=== PATIENT | female | born 1955 | race Two or more races ===

== ENCOUNTER 2019-12-01 08:31 | Emergency (ER) | payer MEDICAID, OTHER ==
[~2019-12-01] VITALS: Ht 162.6 cm; Wt 103.4 kg
[2019-12-01] MEDS ORDERED: ASPirin 81 mg TAB PO ONE (09:00)
[2019-12-01] MEDS ORDERED: HYDROcodone-ACET 10/325MG TAB PO ONE (09:15)
[2019-12-01 09:17] LABS: Basophils # (auto) 0.1 uL; Eosinophils # (auto) 0.3 uL; Eosinophils % (auto) 3.6 % (0.0-7.0); Hematocrit 45.9 % (36.0-46.0); Hemoglobin 15.7 g/dL (12.2-16.2); Lymphocytes # (auto) 2.8 uL; Lymphocytes % (auto) 36.3 % (10.0-50.0); Mean Corpuscular Hemoglobin 31.7 pg (28.0-32.0); Mean Corpuscular Hgb Conc. 34.3 g/dL (32.0-36.0); Mean Corpuscular Volume 92.2 fL (80.0-100.0); Monocytes # (auto) 0.6 uL; Monocytes % (auto) 7.6 % (0.0-12.0); Neutrophils % (auto) 51.5 % (37.0-80.0); Nucleated Red Blood Cells % 0.1 %; Platelet Count (auto) 285 10^3/uL (140-450); Red Blood Cells 4.97 10^6/uL (4.0-5.20); Red Cell Distribution Width 13.3 % (11.8-14.3); White Blood Cell 7.8 10^3/uL (4.4-10.8)
[2019-12-01 09:24] LABS: Urine Bacteria FEW /hpf (None Seen); Urine Blood 1+ /uL (Negative); Urine Specific Gravity 1.021 (1.001-1.035); Urine WBC 5 /hpf (0 - 5)
[2019-12-01 09:42] LABS: Alanine Aminotransferase 32 U/L (13-56); Albumin 3.7 g/dL (3.4-5.0); Anion Gap 6 (5-15); Aspartate Aminotransferase 18 U/L (15-37); Blood Urea Nitrogen 18 mg/dL (7-18); Calcium 8.8 mg/dL (8.5-10.1); Carbon Dioxide 25 mmol/L (21-32); Chloride 108 mmol/L (98-107); GFR African American 106 mL/min; GFR Non-African American 87 mL/min; Glucose 106 mg/dL (74-106); Potassium 3.7 mmol/L (3.5-5.1); Sodium 139 mmol/L (136-145)
[2019-12-01 09:46] LABS: Alkaline Phosphatase 118 U/L (45-117); Bilirubin, Total 0.4 mg/dL (0.2-1.0); Total Protein 7.6 g/dL (6.4-8.2)
[2019-12-01 10:00] VITALS: BP 141/74
== END 2019-12-01 10:30 | disposition home or self-care (01) ==
LOC: ER 08:31
DX: R07.89 Other chest pain (principal); N39.0 Urinary tract infection, site not specified; I10 Essential (primary) hypertension; E78.5 Hyperlipidemia, unspecified
CPT/HCPCS: 36415; 71045; 80053; 81001; 82962; 84484; 85025; 93005

== ENCOUNTER 2020-10-12 20:40 | Inpatient (IN) | payer MEDICAID ==
[~2020-10-12] VITALS: Ht 162.6 cm; Wt 86.7 kg
[2020-10-12 22:45] LABS: INR 0.95 (0.9-1.15); Partial Thromboplastin Time 27.6 sec (23.0-31.2)
[2020-10-12 22:49] LABS: Albumin 3.3 g/dL (3.4-5.0); Anion Gap 6 (5-15); Blood Urea Nitrogen 16 mg/dL (7-18); Calcium 8.6 mg/dL (8.5-10.1); Carbon Dioxide 27 mmol/L (21-32); Chloride 104 mmol/L (98-107); Glucose 116 mg/dL (74-106); Magnesium 2.2 mg/dL (1.6-2.6); Potassium 3.1 mmol/L (3.5-5.1); Sodium 137 mmol/L (136-145)
[2020-10-12 22:56] LABS: Alanine Aminotransferase 35 U/L (13-56); Alkaline Phosphatase 106 U/L (45-117); Aspartate Aminotransferase 39 U/L (15-37); BUN/Creatinine Ratio 24.6; Bilirubin, Total 0.4 mg/dL (0.2-1.0); GFR African American 118 mL/min; GFR Non-African American 98 mL/min; Total Protein 7.7 g/dL (6.4-8.2)
[2020-10-12 22:59] LABS: Basophils # (auto) 0.1 10 ^3/uL (0-0.2); Basophils % (auto) 0.9 % (0.0-2.0); Eosinophils # (auto) 0 10 ^3/uL (0-0.8); Hematocrit 40.9 % (36.0-46.0); Hemoglobin 14.6 g/dL (12.2-16.2); Lymphocytes # (auto) 1.4 10 ^3/uL (0.4-5.4); Lymphocytes % (auto) 18.1 % (10.0-50.0); Mean Corpuscular Hemoglobin 32.1 pg (28.0-32.0); Mean Corpuscular Hgb Conc. 35.8 g/dL (32.0-36.0); Mean Corpuscular Volume 89.7 fL (80.0-100.0); Monocytes # (auto) 0.5 10 ^3/uL (0-1.3); Monocytes % (auto) 6.6 % (0.0-12.0); Neutrophils # (auto) 5.8 10 ^3/uL (1.6-8.6); Neutrophils % (auto) 74.4 % (37.0-80.0); Nucleated Red Blood Cells % 0.1 %; Platelet Count (auto) 180 10^3/uL (140-450); Red Blood Cells 4.56 10^6/uL (4.0-5.20); Red Cell Distribution Width 12.9 % (11.8-14.3); White Blood Cell 7.8 10^3/uL (4.4-10.8)
[2020-10-12] MEDS ORDERED: DexAMETHasone SOD PHOS 10MG/1ML VIAL INJ IV ONE (23:00)
[2020-10-12] MEDS ORDERED: DOXYCYCLINE 100MG/250ML 250 ML IV ONE (23:00)
[2020-10-13] MEDS ORDERED: ACETAMINOPHEN 325 MG TAB PO ONE ×2 (01:49→01:58)
[2020-10-13] MEDS ORDERED: CHOLECALCIFEROL (VITD3) 2,000 UNIT CAP/TAB PO ONE (03:15)
[2020-10-13] MEDS ORDERED: MORPHINE SULF INJ 2 MG/ML SYRINGE 1ML IV PRN (03:15)
[2020-10-13] MEDS ORDERED: ZINC SULFATE 220mg CAP or TAB PO ONE (03:15)
[2020-10-13] MEDS ORDERED: NITROGLYCERIN 0.4 MG SL TAB SL PRN (03:15)
[2020-10-13] MEDS ORDERED: ALBUTEROL SULF HFA 90MCG INH 200DOSE IN PRN (03:45)
[2020-10-13] MEDS ORDERED: ALBUTEROL SULF 2.5 MG/0.5ML(0.5%) NEB SOLN NEB SCH (06:00)
[2020-10-13] MEDS: ENOXAPARIN SOD 40 MG/0.4 ML SYRINGE SC SCH (09:52)
[2020-10-13] MEDS: DexAMETHasone SOD PHOS 10MG/1ML VIAL INJ IV SCH (09:52)
[2020-10-13] MEDS: ASCORBIC ACID 500 MG TAB PO SCH ×2 (09:52→22:03)
[2020-10-13] MEDS: CHOLECALCIFEROL (VITD3) 2,000 UNIT CAP/TAB PO SCH (09:52)
[2020-10-13] MEDS: ZINC SULFATE 220mg CAP or TAB PO SCH (09:52)
[2020-10-13] MEDS: cefTRIAXone 1GM/50ML D5W 50 ML IV SCH (10:08)
[2020-10-13] MEDS: AZITHROMYCIN 500MG/ 250ML 250 ML IV SCH (10:18)
[2020-10-13 10:21] LABS: Basophils # (auto) 0 10 ^3/uL (0-0.2); Basophils % (auto) 0.4 % (0.0-2.0); Eosinophils # (auto) 0 10 ^3/uL (0-0.8); Eosinophils % (auto) 0.2 % (0.0-7.0); Hematocrit 39.5 % (36.0-46.0); Hemoglobin 14.1 g/dL (12.2-16.2); Lymphocytes % (auto) 16.5 % (10.0-50.0); Mean Corpuscular Hemoglobin 31.8 pg (28.0-32.0); Mean Corpuscular Hgb Conc. 35.5 g/dL (32.0-36.0); Mean Corpuscular Volume 89.5 fL (80.0-100.0); Monocytes # (auto) 0.2 10 ^3/uL (0-1.3); Monocytes % (auto) 3.6 % (0.0-12.0); Neutrophils # (auto) 4.6 10 ^3/uL (1.6-8.6); Neutrophils % (auto) 79.3 % (37.0-80.0); Platelet Count (auto) 198 10^3/uL (140-450); Red Blood Cells 4.42 10^6/uL (4.0-5.20); Red Cell Distribution Width 12.8 % (11.8-14.3); White Blood Cell 5.8 10^3/uL (4.4-10.8)
[2020-10-13 10:43] LABS: Potassium 3.4 mmol/L (3.5-5.1)
[2020-10-13 10:56] LABS: Albumin 3.2 g/dL (3.4-5.0); BUN/Creatinine Ratio 22.6; Bilirubin, Total 0.4 mg/dL (0.2-1.0); Calcium 9.2 mg/dL (8.5-10.1); Total Protein 7.5 g/dL (6.4-8.2)
[2020-10-13] MEDS ORDERED: IOHEXOL 350 MG/ML 100ML IJ ONE (13:25)
[2020-10-13] MEDS ORDERED: REMDESIVIR PER PHARMACY 0 ML IV SCH (22:45)
[2020-10-14 01:19] VITALS: BP 125/69
[2020-10-14] MEDS: ALBUTEROL SULF HFA 90MCG INH 200DOSE IN SCH ×4 (01:45→18:25)
[2020-10-14] MEDS ORDERED: POTASSIUM EFFERVESENT TAB 25 MEQ PO ONE (01:45)
[2020-10-14 01:56] VITALS: BP 125/69
[2020-10-14 06:15] LABS: Urine Bacteria FEW /hpf (None Seen); Urine Blood Negative /uL (Negative); Urine Hyaline Cast FEW /lpf (0 - 2); Urine Mucus FEW (None Seen); Urine Specific Gravity 1.025 (1.001-1.035); Urine WBC 2 /hpf (0 - 5)
[2020-10-14 08:00] VITALS: BP 149/91
[2020-10-14] MEDS: CHOLECALCIFEROL (VITD3) 2,000 UNIT CAP/TAB PO SCH (11:13)
[2020-10-14] MEDS: ASCORBIC ACID 500 MG TAB PO SCH ×2 (11:13→20:38)
[2020-10-14] MEDS: ENOXAPARIN SOD 40 MG/0.4 ML SYRINGE SC SCH (11:13)
[2020-10-14] MEDS: AZITHROMYCIN 500MG/ 250ML 250 ML IV SCH (11:13)
[2020-10-14] MEDS: ZINC SULFATE 220mg CAP or TAB PO SCH (11:13)
[2020-10-14] MEDS: DexAMETHasone SOD PHOS 10MG/1ML VIAL INJ IV SCH (11:13)
[2020-10-14] MEDS: cefTRIAXone 1GM/50ML D5W 50 ML IV SCH (11:13)
[2020-10-14 12:10] LABS: Basophils # (auto) 0 10 ^3/uL (0-0.2); Basophils % (auto) 0.2 % (0.0-2.0); Eosinophils # (auto) 0 10 ^3/uL (0-0.8); Hematocrit 39.3 % (36.0-46.0); Hemoglobin 13.9 g/dL (12.2-16.2); Lymphocytes # (auto) 1.4 10 ^3/uL (0.4-5.4); Lymphocytes % (auto) 10.8 % (10.0-50.0); Mean Corpuscular Hemoglobin 31.5 pg (28.0-32.0); Mean Corpuscular Hgb Conc. 35.3 g/dL (32.0-36.0); Mean Corpuscular Volume 89.2 fL (80.0-100.0); Monocytes # (auto) 0.5 10 ^3/uL (0-1.3); Monocytes % (auto) 3.7 % (0.0-12.0); Neutrophils # (auto) 11.4 10 ^3/uL (1.6-8.6); Neutrophils % (auto) 85.3 % (37.0-80.0); Nucleated Red Blood Cells % 0.1 %; Platelet Count (auto) 245 10^3/uL (140-450); Red Blood Cells 4.41 10^6/uL (4.0-5.20); Red Cell Distribution Width 13.3 % (11.8-14.3); White Blood Cell 13.4 10^3/uL (4.4-10.8)
[2020-10-14 12:27] LABS: Potassium 3.5 mmol/L (3.5-5.1)
[2020-10-14 12:39] LABS: Albumin 3.1 g/dL (3.4-5.0); Bilirubin, Direct 0.1 mg/dL (0-0.2); Bilirubin, Total 0.5 mg/dL (0.2-1.0); Total Protein 7.2 g/dL (6.4-8.2)
[2020-10-14 12:45] LABS: BUN/Creatinine Ratio 28.2; CRP High Sensitivity 2.96 mg/dL (< 0.3)
[2020-10-14 12:49] LABS: Calcium 8.8 mg/dL (8.5-10.1)
[2020-10-14] MEDS ORDERED: REMDESIVIR 200 MG in NS 210ml LOADING DOSE ADULT IV ONE (15:00)
[2020-10-14 16:03] VITALS: BP 116/74
[2020-10-14] MEDS ORDERED: guaiFENesin-DM 100/10mg/5ml SYR PO PRN (17:15)
[2020-10-14] MEDS: ACETAMINOPHEN 325 MG TAB PO PRN (17:32)
[2020-10-15] VITALS: BP 88/55
[2020-10-15] MEDS: ALBUTEROL SULF HFA 90MCG INH 200DOSE IN SCH ×4 (06:00→22:57)
[2020-10-15 08:00] VITALS: BP 127/61
[2020-10-15 08:14] LABS: Basophils # (auto) 0 10 ^3/uL (0-0.2); Basophils % (auto) 0.1 % (0.0-2.0); Eosinophils # (auto) 0 10 ^3/uL (0-0.8); Hematocrit 40.4 % (36.0-46.0); Hemoglobin 13.7 g/dL (12.2-16.2); Lymphocytes # (auto) 1.2 10 ^3/uL (0.4-5.4); Lymphocytes % (auto) 9.2 % (10.0-50.0); Mean Corpuscular Hemoglobin 30.8 pg (28.0-32.0); Mean Corpuscular Volume 90.5 fL (80.0-100.0); Monocytes % (auto) 7.5 % (0.0-12.0); Neutrophils # (auto) 10.7 10 ^3/uL (1.6-8.6); Neutrophils % (auto) 83.2 % (37.0-80.0); Platelet Count (auto) 278 10^3/uL (140-450); Red Blood Cells 4.46 10^6/uL (4.0-5.20); Red Cell Distribution Width 13.2 % (11.8-14.3); White Blood Cell 12.8 10^3/uL (4.4-10.8)
[2020-10-15 08:51] LABS: Potassium 3.6 mmol/L (3.5-5.1)
[2020-10-15 09:14] LABS: Albumin 2.7 g/dL (3.4-5.0); BUN/Creatinine Ratio 39.6; Bilirubin, Total 0.5 mg/dL (0.2-1.0); CRP High Sensitivity 8.58 mg/dL (< 0.3); Calcium 8.8 mg/dL (8.5-10.1)
[2020-10-15] MEDS ORDERED: AMLO-496 PO (12:01)
[2020-10-15] MEDS ORDERED: HYDR-4833 PO (12:02)
[2020-10-15] MEDS: cefTRIAXone 1GM/50ML D5W 50 ML IV SCH (15:58)
[2020-10-15] MEDS: ZINC SULFATE 220mg CAP or TAB PO SCH (15:58)
[2020-10-15] MEDS: AZITHROMYCIN 500MG/ 250ML 250 ML IV SCH (15:59)
[2020-10-15] MEDS: ASCORBIC ACID 500 MG TAB PO SCH ×2 (15:59→22:26)
[2020-10-15] MEDS: CHOLECALCIFEROL (VITD3) 2,000 UNIT CAP/TAB PO SCH (15:59)
[2020-10-15 16:00] VITALS: BP 138/71
[2020-10-15] MEDS ORDERED: diphenhdrAMINE HCL 50 MG/1 ML VL IV ONE (17:00)
[2020-10-15] MEDS ORDERED: TOCILIZUMAB 400 MG in SODIUM CHL 0.9% 80 ML IV ONE (17:00)
[2020-10-15] MEDS ORDERED: ACETAMINOPHEN 650 mg PER 20.3 mL UD PO ONE (17:00)
[2020-10-15] MEDS ORDERED: methylPREDNISolone SOD SUCC 40 MG/ML VL IV ONE (17:00)
[2020-10-15] MEDS: REMDESIVIR 100mg 100 MG in SODIUM CHL 0.9% 230 ML IV SCH (17:05)
[2020-10-15] MEDS: IVERMECTIN 3 MG TAB PO SCH (18:52)
[2020-10-15] MEDS: ENOXAPARIN SOD 40 MG/0.4 ML SYRINGE SC SCH (22:25)
[2020-10-16] VITALS: BP 144/72
[2020-10-16 06:14] LABS: Basophils # (auto) 0 10 ^3/uL (0-0.2); Basophils % (auto) 0.1 % (0.0-2.0); Eosinophils # (auto) 0 10 ^3/uL (0-0.8); Hematocrit 40.5 % (36.0-46.0); Hemoglobin 13.6 g/dL (12.2-16.2); Lymphocytes # (auto) 0.9 10 ^3/uL (0.4-5.4); Lymphocytes % (auto) 7.5 % (10.0-50.0); Mean Corpuscular Hemoglobin 30.6 pg (28.0-32.0); Mean Corpuscular Hgb Conc. 33.6 g/dL (32.0-36.0); Mean Corpuscular Volume 91.3 fL (80.0-100.0); Monocytes # (auto) 0.5 10 ^3/uL (0-1.3); Monocytes % (auto) 4.4 % (0.0-12.0); Neutrophils # (auto) 10.3 10 ^3/uL (1.6-8.6); Nucleated Red Blood Cells % 0.1 %; Platelet Count (auto) 325 10^3/uL (140-450); Red Blood Cells 4.44 10^6/uL (4.0-5.20); Red Cell Distribution Width 13.3 % (11.8-14.3); White Blood Cell 11.7 10^3/uL (4.4-10.8)
[2020-10-16 06:35] LABS: Potassium 3.9 mmol/L (3.5-5.1)
[2020-10-16 06:54] LABS: Albumin 2.5 g/dL (3.4-5.0); BUN/Creatinine Ratio 42.1; Bilirubin, Total 0.6 mg/dL (0.2-1.0); CRP High Sensitivity 6.4 mg/dL (< 0.3); Calcium 8.4 mg/dL (8.5-10.1); Total Protein 6.9 g/dL (6.4-8.2)
[2020-10-16 08:00] VITALS: BP 132/89
[2020-10-16] MEDS ORDERED: methylPREDNISolone SOD SUCC 40 MG/ML VL IV ONE (10:30)
[2020-10-16] MEDS ORDERED: TOCILIZUMAB 400 MG in SODIUM CHL 0.9% 80 ML IV ONE (10:30)
[2020-10-16] MEDS ORDERED: diphenhdrAMINE HCL 50 MG/1 ML VL IV ONE (10:30)
[2020-10-16] MEDS ORDERED: ACETAMINOPHEN 650 mg PER 20.3 mL UD PO ONE (10:30)
[2020-10-16] MEDS: cefTRIAXone 1GM/50ML D5W 50 ML IV SCH (12:21)
[2020-10-16] MEDS: DexAMETHasone SOD PHOS 10MG/1ML VIAL INJ IV SCH (12:21)
[2020-10-16] MEDS: AZITHROMYCIN 500MG/ 250ML 250 ML IV SCH (12:22)
[2020-10-16] MEDS: ASCORBIC ACID 500 MG TAB PO SCH ×2 (12:23→21:35)
[2020-10-16] MEDS: CHOLECALCIFEROL (VITD3) 2,000 UNIT CAP/TAB PO SCH (12:23)
[2020-10-16] MEDS: ZINC SULFATE 220mg CAP or TAB PO SCH (12:23)
[2020-10-16] MEDS: ENOXAPARIN SOD 40 MG/0.4 ML SYRINGE SC SCH (12:24)
[2020-10-16] MEDS: REMDESIVIR 100mg 100 MG in SODIUM CHL 0.9% 230 ML IV SCH (14:46)
[2020-10-16 16:00] VITALS: BP 135/66
[2020-10-16] MEDS: IVERMECTIN 3 MG TAB PO SCH (17:05)
[2020-10-16] MEDS: ALBUTEROL SULF HFA 90MCG INH 200DOSE IN SCH ×2 (17:05→22:18)
[2020-10-16] MEDS: ENOXAPARIN SOD 100 MG/1 ML SYRINGE SC SCH (21:35)
[2020-10-17 00:17] VITALS: BP 140/67
[2020-10-17] MEDS: ALBUTEROL SULF HFA 90MCG INH 200DOSE IN SCH ×3 (06:50→20:15)
[2020-10-17 08:00] VITALS: BP 145/68
[2020-10-17 08:00] LABS: Basophils # (auto) 0 10 ^3/uL (0-0.2); Eosinophils # (auto) 0 10 ^3/uL (0-0.8); Hematocrit 40.6 % (36.0-46.0); Lymphocytes # (auto) 1.1 10 ^3/uL (0.4-5.4); Mean Corpuscular Hemoglobin 31.2 pg (28.0-32.0); Mean Corpuscular Hgb Conc. 34.5 g/dL (32.0-36.0); Mean Corpuscular Volume 90.4 fL (80.0-100.0); Monocytes # (auto) 0.8 10 ^3/uL (0-1.3); Monocytes % (auto) 5.2 % (0.0-12.0); Neutrophils # (auto) 13.5 10 ^3/uL (1.6-8.6); Neutrophils % (auto) 87.8 % (37.0-80.0); Platelet Count (auto) 431 10^3/uL (140-450); Red Blood Cells 4.49 10^6/uL (4.0-5.20); White Blood Cell 15.4 10^3/uL (4.4-10.8)
[2020-10-17 08:34] LABS: Albumin 2.6 g/dL (3.4-5.0); BUN/Creatinine Ratio 47.4; Bilirubin, Total 0.5 mg/dL (0.2-1.0); CRP High Sensitivity 2.71 mg/dL (< 0.3); Calcium 8.4 mg/dL (8.5-10.1); Total Protein 6.9 g/dL (6.4-8.2)
[2020-10-17] MEDS: DexAMETHasone SOD PHOS 10MG/1ML VIAL INJ IV SCH (10:44)
[2020-10-17] MEDS: ENOXAPARIN SOD 100 MG/1 ML SYRINGE SC SCH ×2 (10:44→20:16)
[2020-10-17] MEDS: ZINC SULFATE 220mg CAP or TAB PO SCH (10:45)
[2020-10-17] MEDS: cefTRIAXone 1GM/50ML D5W 50 ML IV SCH (10:45)
[2020-10-17] MEDS: ASCORBIC ACID 500 MG TAB PO SCH ×2 (10:45→20:17)
[2020-10-17] MEDS: CHOLECALCIFEROL (VITD3) 2,000 UNIT CAP/TAB PO SCH (10:45)
[2020-10-17] MEDS: AZITHROMYCIN 500MG/ 250ML 250 ML IV SCH (10:54)
[2020-10-17] MEDS: REMDESIVIR 100mg 100 MG in SODIUM CHL 0.9% 230 ML IV SCH (15:48)
[2020-10-17 15:58] VITALS: BP_SYST 127; BP_SYST 157; BP_DIAS 65; BP_DIAS 82
[2020-10-17] MEDS: IVERMECTIN 3 MG TAB PO SCH (17:00)
[2020-10-17] MEDS: ACETAMINOPHEN 325 MG TAB PO PRN (17:02)
[2020-10-18] VITALS: BP 132/52
[2020-10-18] MEDS: ALBUTEROL SULF HFA 90MCG INH 200DOSE IN SCH ×3 (06:24→22:00)
[2020-10-18 07:37] VITALS: BP 149/65
[2020-10-18 07:57] LABS: Eosinophils # (auto) 0 10 ^3/uL (0-0.8); Hematocrit 42.3 % (36.0-46.0); Monocytes # (auto) 0.3 10 ^3/uL (0-1.3); White Blood Cell 13.6 10^3/uL (4.4-10.8)
[2020-10-18 08:00] LABS: Basophils # (auto) 0 10 ^3/uL (0-0.2); Basophils % (auto) 0.3 % (0.0-2.0); Eosinophils % (auto) 0.3 % (0.0-7.0); Hemoglobin 14.5 g/dL (12.2-16.2); Lymphocytes # (auto) 1.6 10 ^3/uL (0.4-5.4); Lymphocytes % (auto) 11.7 % (10.0-50.0); Mean Corpuscular Hemoglobin 30.8 pg (28.0-32.0); Mean Corpuscular Hgb Conc. 34.3 g/dL (32.0-36.0); Mean Corpuscular Volume 89.8 fL (80.0-100.0); Neutrophils # (auto) 11.7 10 ^3/uL (1.6-8.6); Neutrophils % (auto) 85.7 % (37.0-80.0); Platelet Count (auto) 479 10^3/uL (140-450); Red Blood Cells 4.71 10^6/uL (4.0-5.20); Red Cell Distribution Width 12.9 % (11.8-14.3)
[2020-10-18 08:13] LABS: Albumin 2.7 g/dL (3.4-5.0); Calcium 8.4 mg/dL (8.5-10.1); Potassium 3.6 mmol/L (3.5-5.1)
[2020-10-18 08:21] LABS: BUN/Creatinine Ratio 47.3; Bilirubin, Total 0.6 mg/dL (0.2-1.0); CRP High Sensitivity 1.15 mg/dL (< 0.3); Total Protein 6.7 g/dL (6.4-8.2)
[2020-10-18] MEDS: ENOXAPARIN SOD 100 MG/1 ML SYRINGE SC SCH ×2 (08:31→20:28)
[2020-10-18] MEDS: ZINC SULFATE 220mg CAP or TAB PO SCH (10:00)
[2020-10-18] MEDS: DexAMETHasone SOD PHOS 10MG/1ML VIAL INJ IV SCH (10:48)
[2020-10-18] MEDS: AZITHROMYCIN 500MG/ 250ML 250 ML IV SCH (10:48)
[2020-10-18] MEDS: cefTRIAXone 1GM/50ML D5W 50 ML IV SCH (10:48)
[2020-10-18] MEDS: ASCORBIC ACID 500 MG TAB PO SCH ×2 (10:49→22:24)
[2020-10-18] MEDS: CHOLECALCIFEROL (VITD3) 2,000 UNIT CAP/TAB PO SCH (10:49)
[2020-10-18] MEDS: REMDESIVIR 100mg 100 MG in SODIUM CHL 0.9% 230 ML IV SCH (15:00)
[2020-10-18 15:45] VITALS: BP 144/70
[2020-10-18] MEDS: IVERMECTIN 3 MG TAB PO SCH (17:00)
[2020-10-18] MEDS: ACETAMINOPHEN 325 MG TAB PO PRN (18:36)
[2020-10-19 00:05] VITALS: BP 155/72
[2020-10-19] MEDS: ALBUTEROL SULF HFA 90MCG INH 200DOSE IN SCH ×2 (06:00→19:34)
[2020-10-19 07:47] LABS: Hematocrit 42.9 % (36.0-46.0); Hemoglobin 14.9 g/dL (12.2-16.2); Mean Corpuscular Hemoglobin 31.3 pg (28.0-32.0); Mean Corpuscular Hgb Conc. 34.8 g/dL (32.0-36.0); Mean Corpuscular Volume 90.1 fL (80.0-100.0); Platelet Count (auto) 267 10^3/uL (140-450); Red Blood Cells 4.76 10^6/uL (4.0-5.20); Red Cell Distribution Width 12.9 % (11.8-14.3)
[2020-10-19 07:54] LABS: White Blood Cell 31.3 10^3/uL (4.4-10.8)
[2020-10-19 07:56] LABS: Basophils % (manual) 0 (0.0-2.0); Blast Cells 0; Eosinophils % (manual) 0 (0-7); Metamyelocytes % 0; Myelocytes % 0; Promyelocytes % 0; Reactive Lymphocytes 0
[2020-10-19 08:18] LABS: Band Neutrophils % (manual) 1; Lymphocytes % (manual) 7 (10.0-50.0); Monocytes % (manual) 1 (0-12)
[2020-10-19 08:21] VITALS: BP 145/58
[2020-10-19] MEDS: CHOLECALCIFEROL (VITD3) 2,000 UNIT CAP/TAB PO SCH (12:07)
[2020-10-19] MEDS: ASCORBIC ACID 500 MG TAB PO SCH ×2 (12:07→22:11)
[2020-10-19] MEDS: MORPHINE SULF INJ 2 MG/ML SYRINGE 1ML IV PRN ×2 (12:07→23:22)
[2020-10-19] MEDS: ZINC SULFATE 220mg CAP or TAB PO SCH (12:08)
[2020-10-19] MEDS: DexAMETHasone SOD PHOS 10MG/1ML VIAL INJ IV SCH (12:08)
[2020-10-19] MEDS: PANTOPRAZOLE 40 MG TAB PO SCH (12:08)
[2020-10-19] MEDS: ENOXAPARIN SOD 100 MG/1 ML SYRINGE SC SCH (12:08)
[2020-10-19] MEDS: cefTRIAXone 1GM/50ML D5W 50 ML IV SCH (12:08)
[2020-10-19] MEDS: AZITHROMYCIN 250 MG TAB PO SCH (12:09)
[2020-10-19 12:22] LABS: BUN/Creatinine Ratio 41.8; Calcium 8.6 mg/dL (8.5-10.1); Potassium 3.9 mmol/L (3.5-5.1)
[2020-10-19] MEDS ORDERED: IOHEXOL 350 MG/ML 100ML IJ ONE (13:16)
[2020-10-19 16:00] VITALS: BP 131/67
[2020-10-19] MEDS ORDERED: HEPARIN DRIP/D5W 100UNITS/ML 250 ML IV SCH (17:00)
[2020-10-19 20:09] LABS: Basophils # (auto) 0 10 ^3/uL (0-0.2); Eosinophils # (auto) 0 10 ^3/uL (0-0.8); Hematocrit 43.2 % (36.0-46.0); Hemoglobin 15.2 g/dL (12.2-16.2); Lymphocytes # (auto) 0.7 10 ^3/uL (0.4-5.4); Mean Corpuscular Hemoglobin 31.8 pg (28.0-32.0); Mean Corpuscular Hgb Conc. 35.1 g/dL (32.0-36.0); Mean Corpuscular Volume 90.6 fL (80.0-100.0); Monocytes # (auto) 0.5 10 ^3/uL (0-1.3); Neutrophils # (auto) 22.8 10 ^3/uL (1.6-8.6); Platelet Count (auto) 271 10^3/uL (140-450); Red Blood Cells 4.77 10^6/uL (4.0-5.20)
[2020-10-19 20:33] LABS: INR 1.17 (0.9-1.15); Partial Thromboplastin Time 27.3 sec (23.0-31.2)
[2020-10-19] MEDS: HEPARIN DRIP/D5W 100UNITS/ML 250 ML IV SCH (21:49)
[2020-10-20] VITALS: BP 139/49
[2020-10-20] MEDS: ALBUTEROL SULF HFA 90MCG INH 200DOSE IN SCH ×3 (06:00→18:55)
[2020-10-20 08:00] VITALS: BP 119/58
[2020-10-20 08:33] LABS: Basophils # (auto) 0 10 ^3/uL (0-0.2); Basophils % (auto) 0.1 % (0.0-2.0); Eosinophils # (auto) 0.2 10 ^3/uL (0-0.8); Eosinophils % (auto) 0.7 % (0.0-7.0); Hemoglobin 15.1 g/dL (12.2-16.2); Lymphocytes # (auto) 1.4 10 ^3/uL (0.4-5.4); Lymphocytes % (auto) 5.9 % (10.0-50.0); Mean Corpuscular Hemoglobin 31.1 pg (28.0-32.0); Mean Corpuscular Hgb Conc. 34.3 g/dL (32.0-36.0); Mean Corpuscular Volume 90.6 fL (80.0-100.0); Monocytes # (auto) 0.3 10 ^3/uL (0-1.3); Monocytes % (auto) 1.5 % (0.0-12.0); Neutrophils # (auto) 21.6 10 ^3/uL (1.6-8.6); Neutrophils % (auto) 91.8 % (37.0-80.0); Nucleated Red Blood Cells % 0.1 %; Platelet Count (auto) 306 10^3/uL (140-450); Red Blood Cells 4.86 10^6/uL (4.0-5.20); Red Cell Distribution Width 13.1 % (11.8-14.3); White Blood Cell 23.5 10^3/uL (4.4-10.8)
[2020-10-20 09:08] LABS: Potassium 3.8 mmol/L (3.5-5.1)
[2020-10-20 09:13] LABS: BUN/Creatinine Ratio 46.2; CRP High Sensitivity 0.42 mg/dL (< 0.3); Calcium 8.3 mg/dL (8.5-10.1); Magnesium 2.8 mg/dL (1.6-2.6)
[2020-10-20] MEDS: AZITHROMYCIN 250 MG TAB PO SCH (10:10)
[2020-10-20] MEDS: cefTRIAXone 1GM/50ML D5W 50 ML IV SCH (10:10)
[2020-10-20] MEDS: PANTOPRAZOLE 40 MG TAB PO SCH (10:10)
[2020-10-20] MEDS: ASCORBIC ACID 500 MG TAB PO SCH ×2 (10:10→22:13)
[2020-10-20] MEDS: DexAMETHasone SOD PHOS 10MG/1ML VIAL INJ IV SCH (10:10)
[2020-10-20] MEDS: ZINC SULFATE 220mg CAP or TAB PO SCH (10:10)
[2020-10-20] MEDS: CHOLECALCIFEROL (VITD3) 2,000 UNIT CAP/TAB PO SCH (10:10)
[2020-10-20] MEDS: HEPARIN DRIP/D5W 100UNITS/ML 250 ML IV SCH (10:12)
[2020-10-20 14:41] LABS: INR 1.14 (0.9-1.15)
[2020-10-20 16:00] VITALS: BP 137/79
[2020-10-20] MEDS: MORPHINE SULF INJ 2 MG/ML SYRINGE 1ML IV PRN ×2 (16:43→22:15)
[2020-10-20 18:11] LABS: INR 1.13 (0.9-1.15); Partial Thromboplastin Time 66.8 sec (23.0-31.2)
[2020-10-21] VITALS: BP 104/61
[2020-10-21] LABS: INR 1.12 (0.9-1.15)
[2020-10-21 00:09] LABS: Partial Thromboplastin Time 82.7 sec (23.0-31.2)
[2020-10-21] MEDS: MORPHINE SULF INJ 2 MG/ML SYRINGE 1ML IV PRN (02:34)
[2020-10-21 02:45] LABS: INR 1.13 (0.9-1.15); Partial Thromboplastin Time 69.7 sec (23.0-31.2)
[2020-10-21] MEDS: ALBUTEROL SULF HFA 90MCG INH 200DOSE IN SCH ×3 (07:08→20:20)
[2020-10-21 07:35] VITALS: BP 110/71
[2020-10-21 08:00] VITALS: BP 110/71
[2020-10-21 08:29] LABS: Basophils # (auto) 0 10 ^3/uL (0-0.2); Basophils % (auto) 0.1 % (0.0-2.0); Eosinophils # (auto) 0.2 10 ^3/uL (0-0.8); Eosinophils % (auto) 0.9 % (0.0-7.0); Hematocrit 42.4 % (36.0-46.0); Hemoglobin 14.6 g/dL (12.2-16.2); Lymphocytes # (auto) 1.3 10 ^3/uL (0.4-5.4); Lymphocytes % (auto) 5.7 % (10.0-50.0); Mean Corpuscular Hemoglobin 31.2 pg (28.0-32.0); Mean Corpuscular Hgb Conc. 34.4 g/dL (32.0-36.0); Mean Corpuscular Volume 90.7 fL (80.0-100.0); Monocytes # (auto) 0.3 10 ^3/uL (0-1.3); Monocytes % (auto) 1.4 % (0.0-12.0); Neutrophils # (auto) 21.5 10 ^3/uL (1.6-8.6); Neutrophils % (auto) 91.9 % (37.0-80.0); Platelet Count (auto) 297 10^3/uL (140-450); Red Blood Cells 4.68 10^6/uL (4.0-5.20); Red Cell Distribution Width 13.4 % (11.8-14.3); White Blood Cell 23.4 10^3/uL (4.4-10.8)
[2020-10-21 08:49] LABS: INR 1.1 (0.9-1.15)
[2020-10-21] MEDS: PANTOPRAZOLE 40 MG TAB PO SCH (10:44)
[2020-10-21] MEDS: cefTRIAXone 1GM/50ML D5W 50 ML IV SCH (10:44)
[2020-10-21] MEDS: ZINC SULFATE 220mg CAP or TAB PO SCH (10:44)
[2020-10-21] MEDS: HEPARIN DRIP/D5W 100UNITS/ML 250 ML IV SCH ×2 (10:44→19:17)
[2020-10-21] MEDS: DexAMETHasone SOD PHOS 10MG/1ML VIAL INJ IV SCH (10:44)
[2020-10-21] MEDS: ASCORBIC ACID 500 MG TAB PO SCH ×2 (10:44→21:19)
[2020-10-21] MEDS: AZITHROMYCIN 250 MG TAB PO SCH (10:44)
[2020-10-21] MEDS: CHOLECALCIFEROL (VITD3) 2,000 UNIT CAP/TAB PO SCH (10:44)
[2020-10-21 16:00] VITALS: BP 129/66
[2020-10-21 18:34] LABS: INR 1.08 (0.9-1.15); Partial Thromboplastin Time 49.1 sec (23.0-31.2)
[2020-10-22] VITALS: BP 130/69
[2020-10-22 03:20] LABS: INR 1.09 (0.9-1.15); Partial Thromboplastin Time 56.7 sec (23.0-31.2)
[2020-10-22] MEDS: HEPARIN DRIP/D5W 100UNITS/ML 250 ML IV SCH ×3 (03:37→16:45)
[2020-10-22] MEDS: MORPHINE SULF INJ 2 MG/ML SYRINGE 1ML IV PRN ×2 (04:48→21:00)
[2020-10-22] MEDS: ALBUTEROL SULF HFA 90MCG INH 200DOSE IN SCH ×3 (06:23→20:14)
[2020-10-22 07:52] LABS: Hematocrit 43.1 % (36.0-46.0); Hemoglobin 14.6 g/dL (12.2-16.2); Mean Corpuscular Hemoglobin 30.9 pg (28.0-32.0); Mean Corpuscular Hgb Conc. 33.9 g/dL (32.0-36.0); Mean Corpuscular Volume 91.2 fL (80.0-100.0); Platelet Count (auto) 313 10^3/uL (140-450); Red Blood Cells 4.72 10^6/uL (4.0-5.20); Red Cell Distribution Width 13.1 % (11.8-14.3); White Blood Cell 29.1 10^3/uL (4.4-10.8)
[2020-10-22 08:00] VITALS: BP 100/48
[2020-10-22 08:08] LABS: INR 1.1 (0.9-1.15); Partial Thromboplastin Time 46.7 sec (23.0-31.2)
[2020-10-22 08:10] LABS: Basophils % (manual) 0 (0.0-2.0); Blast Cells 0; Eosinophils % (manual) 0 (0-7); Promyelocytes % 0; Reactive Lymphocytes 0
[2020-10-22] MEDS: AZITHROMYCIN 250 MG TAB PO SCH (10:20)
[2020-10-22] MEDS: ASCORBIC ACID 500 MG TAB PO SCH ×2 (10:20→22:23)
[2020-10-22] MEDS: CHOLECALCIFEROL (VITD3) 2,000 UNIT CAP/TAB PO SCH (10:20)
[2020-10-22] MEDS: cefTRIAXone 1GM/50ML D5W 50 ML IV SCH (10:20)
[2020-10-22] MEDS: DexAMETHasone SOD PHOS 10MG/1ML VIAL INJ IV SCH (10:20)
[2020-10-22] MEDS: PANTOPRAZOLE 40 MG TAB PO SCH (10:20)
[2020-10-22] MEDS: ZINC SULFATE 220mg CAP or TAB PO SCH (10:20)
[2020-10-22 10:34] LABS: Band Neutrophils % (manual) 9; Lymphocytes % (manual) 1 (10.0-50.0); Metamyelocytes % 1; Monocytes % (manual) 1 (0-12); Myelocytes % 2
[2020-10-22 15:46] LABS: INR 1.07 (0.9-1.15); Partial Thromboplastin Time 33.4 sec (23.0-31.2)
[2020-10-22 16:00] VITALS: BP 100/47
[2020-10-22] MEDS ORDERED: HEPARIN SODIUM (PORCINE) 5000 UNITS/ML 1ML VIAL IV ONE (16:45)
[2020-10-22 18:45] VITALS: BP 100/47
[2020-10-23] VITALS: BP_SYST 108; BP_SYST 124; BP_DIAS 62; BP_DIAS 82
[2020-10-23 00:02] LABS: INR 1.09 (0.9-1.15)
[2020-10-23 00:05] LABS: Partial Thromboplastin Time 97.4 sec (23.0-31.2)
[2020-10-23] MEDS: ALBUTEROL SULF HFA 90MCG INH 200DOSE IN SCH ×3 (07:00→19:44)
[2020-10-23 08:00] VITALS: BP 115/57
[2020-10-23 08:08] LABS: Mean Corpuscular Hemoglobin 30.9 pg (28.0-32.0)
[2020-10-23 08:11] LABS: Hematocrit 43.6 % (36.0-46.0); Hemoglobin 14.8 g/dL (12.2-16.2); Mean Corpuscular Volume 90.9 fL (80.0-100.0); Platelet Count (auto) 329 10^3/uL (140-450); Red Cell Distribution Width 13.3 % (11.8-14.3)
[2020-10-23 08:17] LABS: Calcium 8.4 mg/dL (8.5-10.1); Magnesium 2.6 mg/dL (1.6-2.6); Potassium 4.1 mmol/L (3.5-5.1)
[2020-10-23 08:19] LABS: BUN/Creatinine Ratio 39.2
[2020-10-23 08:35] LABS: White Blood Cell 36.6 10^3/uL (4.4-10.8)
[2020-10-23 08:37] LABS: Basophils % (manual) 0 (0.0-2.0); Blast Cells 0; Eosinophils % (manual) 0 (0-7); Metamyelocytes % 0; Myelocytes % 0; Promyelocytes % 0; Reactive Lymphocytes 0
[2020-10-23 09:02] LABS: INR 1.09 (0.9-1.15); Partial Thromboplastin Time 55.2 sec (23.0-31.2)
[2020-10-23] MEDS: HEPARIN DRIP/D5W 100UNITS/ML 250 ML IV SCH ×2 (09:57→16:30)
[2020-10-23] MEDS: ZINC SULFATE 220mg CAP or TAB PO SCH (10:01)
[2020-10-23] MEDS: DexAMETHasone SOD PHOS 10MG/1ML VIAL INJ IV SCH (10:01)
[2020-10-23] MEDS: cefTRIAXone 1GM/50ML D5W 50 ML IV SCH (10:01)
[2020-10-23] MEDS: AZITHROMYCIN 250 MG TAB PO SCH (10:02)
[2020-10-23] MEDS: PANTOPRAZOLE 40 MG TAB PO SCH (10:02)
[2020-10-23] MEDS: CHOLECALCIFEROL (VITD3) 2,000 UNIT CAP/TAB PO SCH (10:02)
[2020-10-23] MEDS: ASCORBIC ACID 500 MG TAB PO SCH ×2 (10:02→21:06)
[2020-10-23 12:51] LABS: Band Neutrophils % (manual) 3; Lymphocytes % (manual) 4 (10.0-50.0); Monocytes % (manual) 3 (0-12)
[2020-10-23 16:00] VITALS: BP 111/62
[2020-10-23 22:15] LABS: INR 1.11 (0.9-1.15); Partial Thromboplastin Time 57.1 sec (23.0-31.2)
[2020-10-23 23:42] VITALS: BP 111/65
[2020-10-24 04:38] LABS: Hemoglobin 14.8 g/dL (12.2-16.2); Red Cell Distribution Width 13.3 % (11.8-14.3)
[2020-10-24 04:41] LABS: Hematocrit 42.4 % (36.0-46.0); Mean Corpuscular Hemoglobin 31.9 pg (28.0-32.0); Mean Corpuscular Hgb Conc. 34.8 g/dL (32.0-36.0); Mean Corpuscular Volume 91.8 fL (80.0-100.0); Platelet Count (auto) 327 10^3/uL (140-450); Red Blood Cells 4.62 10^6/uL (4.0-5.20)
[2020-10-24 04:53] LABS: INR 1.08 (0.9-1.15); Partial Thromboplastin Time 54.4 sec (23.0-31.2)
[2020-10-24 05:01] LABS: Albumin 2.9 g/dL (3.4-5.0); Calcium 8.8 mg/dL (8.5-10.1); Magnesium 2.7 mg/dL (1.6-2.6); Potassium 4.5 mmol/L (3.5-5.1)
[2020-10-24 05:04] LABS: BUN/Creatinine Ratio 47.4; Bilirubin, Total 0.5 mg/dL (0.2-1.0); Total Protein 6.8 g/dL (6.4-8.2)
[2020-10-24 05:16] LABS: Band Neutrophils % (manual) 0; Basophils % (manual) 0 (0.0-2.0); Blast Cells 0; Eosinophils % (manual) 0 (0-7); Metamyelocytes % 0; Monocytes % (manual) 0 (0-12); Myelocytes % 0; Promyelocytes % 0; Reactive Lymphocytes 0; White Blood Cell 37.1 10^3/uL (4.4-10.8)
[2020-10-24] MEDS: ALBUTEROL SULF HFA 90MCG INH 200DOSE IN SCH ×3 (06:15→19:07)
[2020-10-24 08:00] VITALS: BP 141/85
[2020-10-24 08:04] LABS: Lymphocytes % (manual) 3 (10.0-50.0)
[2020-10-24] MEDS: DexAMETHasone SOD PHOS 10MG/1ML VIAL INJ IV SCH (09:59)
[2020-10-24] MEDS: ASCORBIC ACID 500 MG TAB PO SCH ×2 (10:00→21:12)
[2020-10-24] MEDS: AZITHROMYCIN 250 MG TAB PO SCH (10:00)
[2020-10-24] MEDS: PANTOPRAZOLE 40 MG TAB PO SCH (10:00)
[2020-10-24] MEDS: CHOLECALCIFEROL (VITD3) 2,000 UNIT CAP/TAB PO SCH (10:00)
[2020-10-24] MEDS: cefTRIAXone 1GM/50ML D5W 50 ML IV SCH (10:00)
[2020-10-24] MEDS: ZINC SULFATE 220mg CAP or TAB PO SCH (10:00)
[2020-10-24 10:16] LABS: INR 1.08 (0.9-1.15); Partial Thromboplastin Time 61.6 sec (23.0-31.2)
[2020-10-24 16:00] VITALS: BP 104/74
[2020-10-24] MEDS ORDERED: WARFARIN SODIUM 5 MG TAB PO SCH (17:00)
[2020-10-24] MEDS: PIPERACILLIN-TAZOB 3.375GM 100 ML IV SCH (17:15)
[2020-10-25] VITALS: BP 106/58
[2020-10-25] MEDS: PIPERACILLIN-TAZOB 3.375GM 100 ML IV SCH ×5 (00:09→23:53)
[2020-10-25] MEDS: HEPARIN DRIP/D5W 100UNITS/ML 250 ML IV SCH ×4 (01:39→17:43)
[2020-10-25 02:35] VITALS: BP 118/62
[2020-10-25] MEDS: MORPHINE SULF INJ 2 MG/ML SYRINGE 1ML IV PRN ×2 (04:47→09:09)
[2020-10-25] MEDS ORDERED: MORPHINE SULFATE 4 MG/ML SYR/VIAL IV PRN (06:00)
[2020-10-25 08:00] VITALS: BP 108/55
[2020-10-25 08:06] LABS: Hematocrit 42.6 % (36.0-46.0); Hemoglobin 14.4 g/dL (12.2-16.2); Mean Corpuscular Hemoglobin 31.4 pg (28.0-32.0); Mean Corpuscular Hgb Conc. 33.9 g/dL (32.0-36.0); Mean Corpuscular Volume 92.6 fL (80.0-100.0); Platelet Count (auto) 387 10^3/uL (140-450); Red Blood Cells 4.61 10^6/uL (4.0-5.20); Red Cell Distribution Width 13.3 % (11.8-14.3); White Blood Cell 29.1 10^3/uL (4.4-10.8)
[2020-10-25 08:17] LABS: Basophils % (manual) 0 (0.0-2.0); Blast Cells 0; Eosinophils % (manual) 0 (0-7); Metamyelocytes % 0; Myelocytes % 0; Promyelocytes % 0; Reactive Lymphocytes 0
[2020-10-25 08:18] LABS: INR 1.22 (0.9-1.15); Partial Thromboplastin Time 45.4 sec (23.0-31.2)
[2020-10-25] MEDS: ASCORBIC ACID 500 MG TAB PO SCH ×2 (09:08→20:30)
[2020-10-25] MEDS: PANTOPRAZOLE 40 MG TAB PO SCH (09:08)
[2020-10-25] MEDS: CHOLECALCIFEROL (VITD3) 2,000 UNIT CAP/TAB PO SCH (09:08)
[2020-10-25] MEDS: ZINC SULFATE 220mg CAP or TAB PO SCH (09:08)
[2020-10-25] MEDS: DexAMETHasone SOD PHOS 10MG/1ML VIAL INJ IV SCH (09:08)
[2020-10-25 11:03] LABS: Band Neutrophils % (manual) 1; Lymphocytes % (manual) 2 (10.0-50.0); Monocytes % (manual) 1 (0-12)
[2020-10-25] MEDS: ALBUTEROL SULF HFA 90MCG INH 200DOSE IN SCH ×2 (15:25→22:09)
[2020-10-25 16:00] VITALS: BP 112/59
[2020-10-25 16:11] LABS: INR 1.27 (0.9-1.15); Partial Thromboplastin Time 43.9 sec (23.0-31.2)
[2020-10-25] MEDS ORDERED: WARFARIN SODIUM 5 MG TAB PO ONE (17:00)
[2020-10-25 23:30] LABS: INR 1.52 (0.9-1.15)
[2020-10-25 23:33] LABS: Partial Thromboplastin Time 94.4 sec (23.0-31.2)
[2020-10-26] VITALS: BP 114/69
[2020-10-26] MEDS: PIPERACILLIN-TAZOB 3.375GM 100 ML IV SCH ×4 (05:49→23:18)
[2020-10-26 07:12] LABS: Hemoglobin 14.8 g/dL (12.2-16.2); Mean Corpuscular Hemoglobin 31.2 pg (28.0-32.0)
[2020-10-26 07:14] LABS: Hematocrit 43.6 % (36.0-46.0); Platelet Count (auto) 420 10^3/uL (140-450); Red Blood Cells 4.74 10^6/uL (4.0-5.20); Red Cell Distribution Width 13.9 % (11.8-14.3); White Blood Cell 29.9 10^3/uL (4.4-10.8)
[2020-10-26 07:17] LABS: INR 1.74 (0.9-1.15); Partial Thromboplastin Time 48.7 sec (23.0-31.2)
[2020-10-26 07:22] LABS: Band Neutrophils % (manual) 0; Basophils % (manual) 0 (0.0-2.0); Blast Cells 0; Eosinophils % (manual) 0 (0-7); Metamyelocytes % 0; Myelocytes % 0; Promyelocytes % 0; Reactive Lymphocytes 0
[2020-10-26 08:00] VITALS: BP 121/62
[2020-10-26] MEDS: HEPARIN DRIP/D5W 100UNITS/ML 250 ML IV SCH (08:33)
[2020-10-26 08:36] LABS: Lymphocytes % (manual) 13 (10.0-50.0); Monocytes % (manual) 10 (0-12)
[2020-10-26] MEDS: ASCORBIC ACID 500 MG TAB PO SCH ×2 (08:40→21:28)
[2020-10-26] MEDS: ZINC SULFATE 220mg CAP or TAB PO SCH (08:40)
[2020-10-26] MEDS: CHOLECALCIFEROL (VITD3) 2,000 UNIT CAP/TAB PO SCH (08:40)
[2020-10-26] MEDS: PANTOPRAZOLE 40 MG TAB PO SCH (08:40)
[2020-10-26] MEDS: DexAMETHasone SOD PHOS 10MG/1ML VIAL INJ IV SCH (08:40)
[2020-10-26 12:15] LABS: INR 1.72 (0.9-1.15); Partial Thromboplastin Time 39.8 sec (23.0-31.2)
[2020-10-26] MEDS: MORPHINE SULF INJ 2 MG/ML SYRINGE 1ML IV PRN (12:33)
[2020-10-26 16:04] VITALS: BP 117/57
[2020-10-26] MEDS: LACTULOSE 20Gm/30ML SOLN PO PRN (16:21)
[2020-10-26 18:42] LABS: INR 1.62 (0.9-1.15); Partial Thromboplastin Time 29.2 sec (23.0-31.2)
[2020-10-26] MEDS: ALBUTEROL SULF HFA 90MCG INH 200DOSE IN PRN (19:48)
[2020-10-26] MEDS: ENOXAPARIN SOD 100 MG/1 ML SYRINGE SC SCH (21:28)
[2020-10-27 00:13] VITALS: BP 141/82
[2020-10-27] MEDS: PIPERACILLIN-TAZOB 3.375GM 100 ML IV SCH ×4 (06:19→23:31)
[2020-10-27 08:00] VITALS: BP 104/55
[2020-10-27 08:09] LABS: Eosinophils # (auto) 0.1 10 ^3/uL (0-0.8); Eosinophils % (auto) 0.4 % (0.0-7.0); Hemoglobin 14.9 g/dL (12.2-16.2); Lymphocytes # (auto) 1.8 10 ^3/uL (0.4-5.4)
[2020-10-27 08:11] LABS: Basophils # (auto) 0 10 ^3/uL (0-0.2); Basophils % (auto) 0.2 % (0.0-2.0); Hematocrit 43.4 % (36.0-46.0); Lymphocytes % (auto) 7.2 % (10.0-50.0); Mean Corpuscular Hemoglobin 31.5 pg (28.0-32.0); Mean Corpuscular Hgb Conc. 34.3 g/dL (32.0-36.0); Mean Corpuscular Volume 91.8 fL (80.0-100.0); Monocytes # (auto) 1.5 10 ^3/uL (0-1.3); Neutrophils # (auto) 21.7 10 ^3/uL (1.6-8.6); Neutrophils % (auto) 86.2 % (37.0-80.0); Nucleated Red Blood Cells % 0.1 %; Platelet Count (auto) 467 10^3/uL (140-450); Red Blood Cells 4.73 10^6/uL (4.0-5.20); Red Cell Distribution Width 13.6 % (11.8-14.3); White Blood Cell 25.1 10^3/uL (4.4-10.8)
[2020-10-27 08:21] LABS: INR 1.48 (0.9-1.15)
[2020-10-27 08:28] LABS: Potassium 3.9 mmol/L (3.5-5.1)
[2020-10-27 08:40] LABS: BUN/Creatinine Ratio 54.4; Bilirubin, Total 0.7 mg/dL (0.2-1.0); Calcium 8.8 mg/dL (8.5-10.1); Total Protein 6.8 g/dL (6.4-8.2)
[2020-10-27] MEDS: PANTOPRAZOLE 40 MG TAB PO SCH (09:17)
[2020-10-27] MEDS: ASCORBIC ACID 500 MG TAB PO SCH ×2 (09:17→21:42)
[2020-10-27] MEDS: DexAMETHasone SOD PHOS 10MG/1ML VIAL INJ IV SCH (09:17)
[2020-10-27] MEDS: ENOXAPARIN SOD 100 MG/1 ML SYRINGE SC SCH ×2 (09:18→21:42)
[2020-10-27] MEDS: CHOLECALCIFEROL (VITD3) 2,000 UNIT CAP/TAB PO SCH (09:18)
[2020-10-27] MEDS: ZINC SULFATE 220mg CAP or TAB PO SCH (09:20)
[2020-10-27 16:00] VITALS: BP 127/80
[2020-10-27] MEDS: ALBUTEROL SULF HFA 90MCG INH 200DOSE IN PRN (19:13)
[2020-10-28] VITALS: BP 122/73
[2020-10-28] MEDS: PIPERACILLIN-TAZOB 3.375GM 100 ML IV SCH ×3 (05:31→18:09)
[2020-10-28 08:00] VITALS: BP 117/72
[2020-10-28] MEDS: ASCORBIC ACID 500 MG TAB PO SCH ×2 (09:52→22:00)
[2020-10-28] MEDS: DexAMETHasone SOD PHOS 10MG/1ML VIAL INJ IV SCH (09:52)
[2020-10-28] MEDS: PANTOPRAZOLE 40 MG TAB PO SCH (09:52)
[2020-10-28] MEDS: ZINC SULFATE 220mg CAP or TAB PO SCH (09:52)
[2020-10-28] MEDS: CHOLECALCIFEROL (VITD3) 2,000 UNIT CAP/TAB PO SCH (09:53)
[2020-10-28] MEDS: ENOXAPARIN SOD 100 MG/1 ML SYRINGE SC SCH (09:53)
[2020-10-28] MEDS: ALBUTEROL SULF HFA 90MCG INH 200DOSE IN PRN (09:58)
[2020-10-28 16:00] VITALS: BP 116/61
[2020-10-28] MEDS ORDERED: WARFARIN SODIUM 5 MG TAB PO ONE (17:00)
[2020-10-28] MEDS: LACTULOSE 20Gm/30ML SOLN PO PRN (23:22)
[2020-10-29] VITALS: BP 137/80
[2020-10-29] MEDS: PIPERACILLIN-TAZOB 3.375GM 100 ML IV SCH ×4 (01:08→18:44)
[2020-10-29 06:25] LABS: INR 1.3 (0.9-1.15); Partial Thromboplastin Time 25.6 sec (23.0-31.2)
[2020-10-29 06:44] LABS: Albumin 2.9 g/dL (3.4-5.0); BUN/Creatinine Ratio 54.7; Bilirubin, Total 0.7 mg/dL (0.2-1.0); Calcium 8.7 mg/dL (8.5-10.1); Total Protein 6.7 g/dL (6.4-8.2)
[2020-10-29 08:00] VITALS: BP 134/76
[2020-10-29 08:01] LABS: Basophils # (auto) 0 10 ^3/uL (0-0.2); Eosinophils # (auto) 0.1 10 ^3/uL (0-0.8); Lymphocytes # (auto) 1.7 10 ^3/uL (0.4-5.4); Monocytes # (auto) 1.3 10 ^3/uL (0-1.3)
[2020-10-29 08:03] LABS: Basophils % (auto) 0.2 % (0.0-2.0); Eosinophils % (auto) 0.3 % (0.0-7.0); Hemoglobin 15.2 g/dL (12.2-16.2); Lymphocytes % (auto) 7.7 % (10.0-50.0); Mean Corpuscular Hemoglobin 31.3 pg (28.0-32.0); Mean Corpuscular Hgb Conc. 33.8 g/dL (32.0-36.0); Mean Corpuscular Volume 92.6 fL (80.0-100.0); Monocytes % (auto) 5.6 % (0.0-12.0); Neutrophils # (auto) 19.3 10 ^3/uL (1.6-8.6); Neutrophils % (auto) 86.2 % (37.0-80.0); Platelet Count (auto) 476 10^3/uL (140-450); Red Blood Cells 4.85 10^6/uL (4.0-5.20); Red Cell Distribution Width 14.1 % (11.8-14.3); White Blood Cell 22.4 10^3/uL (4.4-10.8)
[2020-10-29] MEDS: ASCORBIC ACID 500 MG TAB PO SCH ×2 (10:28→21:23)
[2020-10-29] MEDS: ZINC SULFATE 220mg CAP or TAB PO SCH (10:28)
[2020-10-29] MEDS: CHOLECALCIFEROL (VITD3) 2,000 UNIT CAP/TAB PO SCH (10:29)
[2020-10-29] MEDS: PANTOPRAZOLE 40 MG TAB PO SCH (10:29)
[2020-10-29] MEDS: DexAMETHasone SOD PHOS 10MG/1ML VIAL INJ IV SCH (10:29)
[2020-10-29 16:00] VITALS: BP 105/74
[2020-10-29] MEDS ORDERED: WARFARIN SODIUM 2.5 MG TAB PO ONE (17:00)
[2020-10-29] MEDS: ALBUTEROL SULF HFA 90MCG INH 200DOSE IN PRN (19:05)
[2020-10-30] VITALS: BP 155/94
[2020-10-30] MEDS: PIPERACILLIN-TAZOB 3.375GM 100 ML IV SCH ×5 (00:41→23:58)
[2020-10-30 07:17] LABS: Basophils # (auto) 0 10 ^3/uL (0-0.2); Basophils % (auto) 0.2 % (0.0-2.0); Eosinophils # (auto) 0.1 10 ^3/uL (0-0.8); Eosinophils % (auto) 0.2 % (0.0-7.0); Hematocrit 42.2 % (36.0-46.0); Hemoglobin 14.3 g/dL (12.2-16.2); Lymphocytes # (auto) 1.5 10 ^3/uL (0.4-5.4); Lymphocytes % (auto) 6.3 % (10.0-50.0); Mean Corpuscular Hemoglobin 31.1 pg (28.0-32.0); Mean Corpuscular Hgb Conc. 33.8 g/dL (32.0-36.0); Mean Corpuscular Volume 92.1 fL (80.0-100.0); Monocytes # (auto) 1.3 10 ^3/uL (0-1.3); Monocytes % (auto) 5.6 % (0.0-12.0); Neutrophils # (auto) 20.4 10 ^3/uL (1.6-8.6); Neutrophils % (auto) 87.7 % (37.0-80.0); Platelet Count (auto) 425 10^3/uL (140-450); Red Blood Cells 4.58 10^6/uL (4.0-5.20); Red Cell Distribution Width 13.8 % (11.8-14.3); White Blood Cell 23.3 10^3/uL (4.4-10.8)
[2020-10-30 07:44] LABS: INR 2.08 (0.9-1.15)
[2020-10-30 07:50] LABS: Albumin 2.8 g/dL (3.4-5.0); BUN/Creatinine Ratio 61.9; Bilirubin, Total 0.5 mg/dL (0.2-1.0); Calcium 8.9 mg/dL (8.5-10.1); Total Protein 6.5 g/dL (6.4-8.2)
[2020-10-30 08:00] VITALS: BP 135/64
[2020-10-30] MEDS: DexAMETHasone SOD PHOS 10MG/1ML VIAL INJ IV SCH (10:24)
[2020-10-30] MEDS: ASCORBIC ACID 500 MG TAB PO SCH (10:24)
[2020-10-30] MEDS: PANTOPRAZOLE 40 MG TAB PO SCH (10:24)
[2020-10-30] MEDS: ZINC SULFATE 220mg CAP or TAB PO SCH (10:24)
[2020-10-30] MEDS: CHOLECALCIFEROL (VITD3) 2,000 UNIT CAP/TAB PO SCH (10:25)
[2020-10-30] MEDS: ALBUTEROL SULF HFA 90MCG INH 200DOSE IN PRN ×2 (14:43→19:25)
[2020-10-30 16:00] VITALS: BP 135/80
[2020-10-30] MEDS ORDERED: WARFARIN SODIUM 2 MG TAB PO ONE (17:00)
[2020-10-31] VITALS: BP 133/87
[2020-10-31] MEDS: PIPERACILLIN-TAZOB 3.375GM 100 ML IV SCH ×3 (06:24→23:49)
[2020-10-31 08:00] LABS: Basophils # (auto) 0 10 ^3/uL (0-0.2); Basophils % (auto) 0.1 % (0.0-2.0); Eosinophils # (auto) 0.1 10 ^3/uL (0-0.8); Eosinophils % (auto) 0.6 % (0.0-7.0); Hematocrit 43.4 % (36.0-46.0); Hemoglobin 14.6 g/dL (12.2-16.2); Lymphocytes # (auto) 1.6 10 ^3/uL (0.4-5.4); Lymphocytes % (auto) 7.6 % (10.0-50.0); Mean Corpuscular Hemoglobin 31.2 pg (28.0-32.0); Mean Corpuscular Hgb Conc. 33.5 g/dL (32.0-36.0); Mean Corpuscular Volume 93.2 fL (80.0-100.0); Monocytes # (auto) 1.4 10 ^3/uL (0-1.3); Monocytes % (auto) 6.5 % (0.0-12.0); Neutrophils # (auto) 18.3 10 ^3/uL (1.6-8.6); Neutrophils % (auto) 85.2 % (37.0-80.0); Platelet Count (auto) 422 10^3/uL (140-450); Red Blood Cells 4.66 10^6/uL (4.0-5.20); Red Cell Distribution Width 13.9 % (11.8-14.3); White Blood Cell 21.5 10^3/uL (4.4-10.8)
[2020-10-31 08:03] LABS: INR 1.93 (0.9-1.15)
[2020-10-31 08:04] VITALS: BP 110/67
[2020-10-31 08:22] LABS: Potassium 4.1 mmol/L (3.5-5.1)
[2020-10-31 08:25] LABS: Calcium 9.1 mg/dL (8.5-10.1)
[2020-10-31] MEDS: PANTOPRAZOLE 40 MG TAB PO SCH (10:56)
[2020-10-31] MEDS: DexAMETHasone SOD PHOS 10MG/1ML VIAL INJ IV SCH (10:57)
[2020-10-31 16:24] VITALS: BP 119/76
[2020-10-31] MEDS ORDERED: WARFARIN SODIUM 1 MG TAB PO ONE (17:00)
[2020-10-31] MEDS: ALBUTEROL SULF HFA 90MCG INH 200DOSE IN PRN (19:28)
[2020-11-01] VITALS: BP 122/78
[2020-11-01] MEDS: PIPERACILLIN-TAZOB 3.375GM 100 ML IV SCH ×3 (05:10→19:17)
[2020-11-01 08:00] VITALS: BP 132/65
[2020-11-01 08:05] LABS: Basophils # (auto) 0 10 ^3/uL (0-0.2); Basophils % (auto) 0.2 % (0.0-2.0); Eosinophils # (auto) 0.1 10 ^3/uL (0-0.8); Eosinophils % (auto) 0.3 % (0.0-7.0); Hematocrit 41.8 % (36.0-46.0); Hemoglobin 14.4 g/dL (12.2-16.2); Lymphocytes # (auto) 1.3 10 ^3/uL (0.4-5.4); Lymphocytes % (auto) 6.7 % (10.0-50.0); Mean Corpuscular Hemoglobin 31.8 pg (28.0-32.0); Mean Corpuscular Hgb Conc. 34.5 g/dL (32.0-36.0); Mean Corpuscular Volume 92.3 fL (80.0-100.0); Monocytes % (auto) 4.9 % (0.0-12.0); Neutrophils # (auto) 17.6 10 ^3/uL (1.6-8.6); Neutrophils % (auto) 87.9 % (37.0-80.0); Platelet Count (auto) 398 10^3/uL (140-450); Red Blood Cells 4.53 10^6/uL (4.0-5.20); Red Cell Distribution Width 14.4 % (11.8-14.3)
[2020-11-01 08:15] LABS: INR 1.58 (0.9-1.15)
[2020-11-01 08:33] LABS: Potassium 4.3 mmol/L (3.5-5.1)
[2020-11-01 08:49] LABS: BUN/Creatinine Ratio 55.8; Calcium 9.1 mg/dL (8.5-10.1)
[2020-11-01] MEDS: DexAMETHasone SOD PHOS 10MG/1ML VIAL INJ IV SCH (09:54)
[2020-11-01] MEDS: PANTOPRAZOLE 40 MG TAB PO SCH (09:54)
[2020-11-01 16:00] VITALS: BP 105/67
[2020-11-01] MEDS ORDERED: WARFARIN SODIUM 5 MG TAB PO ONE (17:00)
[2020-11-01] MEDS: ALBUTEROL SULF HFA 90MCG INH 200DOSE IN PRN (20:11)
[2020-11-02] VITALS: BP 138/84
[2020-11-02] MEDS: PIPERACILLIN-TAZOB 3.375GM 100 ML IV SCH ×4 (00:48→18:11)
[2020-11-02] MEDS: ACETAMINOPHEN 325 MG TAB PO PRN (05:40)
[2020-11-02] MEDS: ALBUTEROL SULF HFA 90MCG INH 200DOSE IN PRN ×2 (06:30→19:51)
[2020-11-02 06:54] LABS: Basophils # (auto) 0 10 ^3/uL (0-0.2); Basophils % (auto) 0.2 % (0.0-2.0); Eosinophils # (auto) 0.3 10 ^3/uL (0-0.8); Eosinophils % (auto) 1.4 % (0.0-7.0); Hematocrit 43.1 % (36.0-46.0); Lymphocytes % (auto) 9.3 % (10.0-50.0); Mean Corpuscular Hemoglobin 32.3 pg (28.0-32.0); Mean Corpuscular Hgb Conc. 34.9 g/dL (32.0-36.0); Mean Corpuscular Volume 92.4 fL (80.0-100.0); Monocytes # (auto) 1.1 10 ^3/uL (0-1.3); Monocytes % (auto) 4.9 % (0.0-12.0); Neutrophils # (auto) 17.9 10 ^3/uL (1.6-8.6); Neutrophils % (auto) 84.2 % (37.0-80.0); Platelet Count (auto) 379 10^3/uL (140-450); Red Blood Cells 4.66 10^6/uL (4.0-5.20); White Blood Cell 21.2 10^3/uL (4.4-10.8)
[2020-11-02 07:07] LABS: INR 1.63 (0.9-1.15); Partial Thromboplastin Time 25.7 sec (23.0-31.2)
[2020-11-02 08:00] VITALS: BP 119/77
[2020-11-02] MEDS: DexAMETHasone SOD PHOS 10MG/1ML VIAL INJ IV SCH (11:25)
[2020-11-02] MEDS: PANTOPRAZOLE 40 MG TAB PO SCH (11:25)
[2020-11-02 16:19] VITALS: BP 125/74
[2020-11-02] MEDS ORDERED: WARFARIN SODIUM 5 MG TAB PO ONE (17:00)
[2020-11-03] VITALS: BP 110/81
[2020-11-03] MEDS: PIPERACILLIN-TAZOB 3.375GM 100 ML IV SCH ×4 (00:35→17:35)
[2020-11-03 06:55] LABS: INR 2.11 (0.9-1.15)
[2020-11-03 07:40] VITALS: BP 120/74
[2020-11-03] MEDS: PANTOPRAZOLE 40 MG TAB PO SCH (10:38)
[2020-11-03] MEDS: DexAMETHasone SOD PHOS 10MG/1ML VIAL INJ IV SCH (10:38)
[2020-11-03 15:33] VITALS: BP 118/73
[2020-11-03] MEDS ORDERED: WARFARIN SODIUM 1 MG TAB PO ONE (17:00)
[2020-11-03] MEDS: ALBUTEROL SULF HFA 90MCG INH 200DOSE IN PRN (22:06)
[2020-11-04] VITALS: BP 128/77
[2020-11-04] MEDS: PIPERACILLIN-TAZOB 3.375GM 100 ML IV SCH ×4 (00:06→17:48)
[2020-11-04 07:42] LABS: Basophils # (auto) 0 10 ^3/uL (0-0.2); Basophils % (auto) 0.2 % (0.0-2.0); Eosinophils # (auto) 0 10 ^3/uL (0-0.8); Eosinophils % (auto) 0.1 % (0.0-7.0); Hematocrit 43.2 % (36.0-46.0); Hemoglobin 14.8 g/dL (12.2-16.2); Lymphocytes % (auto) 5.7 % (10.0-50.0); Mean Corpuscular Hemoglobin 31.9 pg (28.0-32.0); Mean Corpuscular Hgb Conc. 34.2 g/dL (32.0-36.0); Mean Corpuscular Volume 93.3 fL (80.0-100.0); Monocytes % (auto) 5.4 % (0.0-12.0); Neutrophils % (auto) 88.6 % (37.0-80.0); Platelet Count (auto) 361 10^3/uL (140-450); Red Blood Cells 4.63 10^6/uL (4.0-5.20); Red Cell Distribution Width 14.4 % (11.8-14.3)
[2020-11-04 07:56] LABS: INR 2.34 (0.9-1.15); Partial Thromboplastin Time 29.7 sec (23.0-31.2)
[2020-11-04 08:00] VITALS: BP 120/83
[2020-11-04 08:02] LABS: BUN/Creatinine Ratio 72.9; Bilirubin, Total 0.5 mg/dL (0.2-1.0); Calcium 9.3 mg/dL (8.5-10.1); Total Protein 7.2 g/dL (6.4-8.2)
[2020-11-04] MEDS: DexAMETHasone SOD PHOS 10MG/1ML VIAL INJ IV SCH (10:30)
[2020-11-04] MEDS: PANTOPRAZOLE 40 MG TAB PO SCH (10:30)
[2020-11-04 16:00] VITALS: BP 118/81
[2020-11-04] MEDS ORDERED: WARFARIN SODIUM 1 MG TAB PO ONE (17:00)
[2020-11-04] MEDS: LACTULOSE 20Gm/30ML SOLN PO PRN (23:57)
[2020-11-05] VITALS: BP 125/67
[2020-11-05 08:00] VITALS: BP 122/81
[2020-11-05 08:21] LABS: Basophils # (auto) 0.1 10 ^3/uL (0-0.2); Basophils % (auto) 0.3 % (0.0-2.0); Eosinophils # (auto) 0.3 10 ^3/uL (0-0.8); Eosinophils % (auto) 1.4 % (0.0-7.0); Hematocrit 43.5 % (36.0-46.0); Hemoglobin 14.9 g/dL (12.2-16.2); Lymphocytes # (auto) 1.9 10 ^3/uL (0.4-5.4); Lymphocytes % (auto) 9.2 % (10.0-50.0); Mean Corpuscular Hemoglobin 31.7 pg (28.0-32.0); Mean Corpuscular Hgb Conc. 34.1 g/dL (32.0-36.0); Monocytes # (auto) 1.5 10 ^3/uL (0-1.3); Monocytes % (auto) 7.2 % (0.0-12.0); Neutrophils # (auto) 16.8 10 ^3/uL (1.6-8.6); Neutrophils % (auto) 81.9 % (37.0-80.0); Platelet Count (auto) 371 10^3/uL (140-450); Red Blood Cells 4.68 10^6/uL (4.0-5.20); Red Cell Distribution Width 14.2 % (11.8-14.3); White Blood Cell 20.5 10^3/uL (4.4-10.8)
[2020-11-05 08:38] LABS: INR 1.15 (0.9-1.15)
[2020-11-05 08:46] LABS: Potassium 3.7 mmol/L (3.5-5.1)
[2020-11-05 08:51] LABS: Albumin 2.9 g/dL (3.4-5.0); BUN/Creatinine Ratio 72.3; Bilirubin, Total 0.6 mg/dL (0.2-1.0); Calcium 9.1 mg/dL (8.5-10.1); Total Protein 7.2 g/dL (6.4-8.2)
[2020-11-05] MEDS: ALPRAZolam 0.25 MG TAB PO PRN (15:30)
[2020-11-05 16:00] VITALS: BP 118/92
[2020-11-05] MEDS ORDERED: WARFARIN SODIUM 5 MG TAB PO ONE (17:00)
[2020-11-05] MEDS: DexAMETHasone SOD PHOS 10MG/1ML VIAL INJ IV SCH (18:45)
[2020-11-05] MEDS: PANTOPRAZOLE 40 MG TAB PO SCH (18:45)
[2020-11-06] VITALS: BP 158/89
[2020-11-06 06:27] LABS: Basophils # (auto) 0 10 ^3/uL (0-0.2); Basophils % (auto) 0.3 % (0.0-2.0); Eosinophils # (auto) 0 10 ^3/uL (0-0.8); Eosinophils % (auto) 0.1 % (0.0-7.0); Hematocrit 44.3 % (36.0-46.0); Hemoglobin 14.9 g/dL (12.2-16.2); Lymphocytes % (auto) 6.8 % (10.0-50.0); Mean Corpuscular Hemoglobin 31.3 pg (28.0-32.0); Mean Corpuscular Hgb Conc. 33.6 g/dL (32.0-36.0); Mean Corpuscular Volume 93.2 fL (80.0-100.0); Monocytes # (auto) 0.7 10 ^3/uL (0-1.3); Monocytes % (auto) 4.7 % (0.0-12.0); Neutrophils # (auto) 13.3 10 ^3/uL (1.6-8.6); Neutrophils % (auto) 88.1 % (37.0-80.0); Platelet Count (auto) 349 10^3/uL (140-450); Red Blood Cells 4.75 10^6/uL (4.0-5.20); Red Cell Distribution Width 14.2 % (11.8-14.3); White Blood Cell 15.1 10^3/uL (4.4-10.8)
[2020-11-06 06:36] LABS: INR 1.14 (0.9-1.15)
[2020-11-06 06:39] LABS: Potassium 4.4 mmol/L (3.5-5.1)
[2020-11-06 06:46] LABS: Albumin 2.8 g/dL (3.4-5.0); Bilirubin, Total 0.6 mg/dL (0.2-1.0); Calcium 9.2 mg/dL (8.5-10.1); Total Protein 7.1 g/dL (6.4-8.2)
[2020-11-06 08:00] VITALS: BP 124/80
[2020-11-06] MEDS: ALPRAZolam 0.25 MG TAB PO PRN (13:21)
[2020-11-06] MEDS: PANTOPRAZOLE 40 MG TAB PO SCH (15:09)
[2020-11-06] MEDS: DexAMETHasone SOD PHOS 10MG/1ML VIAL INJ IV SCH (15:10)
[2020-11-06 16:00] VITALS: BP 131/92
[2020-11-06] MEDS ORDERED: WARFARIN SODIUM 2.5 MG TAB PO ONE (17:00)
[2020-11-06] MEDS: ALBUTEROL SULF HFA 90MCG INH 200DOSE IN PRN (20:16)
[2020-11-07] VITALS: BP 111/79
[2020-11-07] MEDS: ALPRAZolam 0.25 MG TAB PO PRN (00:56)
[2020-11-07 07:20] LABS: INR 1.38 (0.9-1.15); Partial Thromboplastin Time 25.6 sec (23.0-31.2)
[2020-11-07 07:40] VITALS: BP 120/80
[2020-11-07 08:00] VITALS: BP 120/80
[2020-11-07] MEDS: DexAMETHasone SOD PHOS 10MG/1ML VIAL INJ IV SCH (08:35)
[2020-11-07] MEDS: PANTOPRAZOLE 40 MG TAB PO SCH (08:36)
[2020-11-07 16:00] VITALS: BP 123/82
[2020-11-07] MEDS ORDERED: WARFARIN SODIUM 5 MG TAB PO ONE (17:00)
[2020-11-07] MEDS: ALBUTEROL SULF HFA 90MCG INH 200DOSE IN PRN (20:01)
[2020-11-07 23:50] VITALS: BP 122/76
[2020-11-08] MEDS: ALBUTEROL SULF HFA 90MCG INH 200DOSE IN PRN ×3 (06:35→19:44)
[2020-11-08 07:31] LABS: Basophils # (auto) 0 10 ^3/uL (0-0.2); Basophils % (auto) 0.1 % (0.0-2.0); Eosinophils # (auto) 0.7 10 ^3/uL (0-0.8); Eosinophils % (auto) 3.8 % (0.0-7.0); Hematocrit 46.7 % (36.0-46.0); Hemoglobin 15.6 g/dL (12.2-16.2); Lymphocytes # (auto) 1.7 10 ^3/uL (0.4-5.4); Lymphocytes % (auto) 9.2 % (10.0-50.0); Mean Corpuscular Hemoglobin 31.2 pg (28.0-32.0); Mean Corpuscular Hgb Conc. 33.4 g/dL (32.0-36.0); Mean Corpuscular Volume 93.6 fL (80.0-100.0); Monocytes # (auto) 1.1 10 ^3/uL (0-1.3); Neutrophils # (auto) 15.2 10 ^3/uL (1.6-8.6); Neutrophils % (auto) 80.9 % (37.0-80.0); Nucleated Red Blood Cells % 0.1 %; Platelet Count (auto) 386 10^3/uL (140-450); Red Blood Cells 4.99 10^6/uL (4.0-5.20); Red Cell Distribution Width 14.6 % (11.8-14.3); White Blood Cell 18.8 10^3/uL (4.4-10.8)
[2020-11-08 07:51] LABS: Albumin 3.1 g/dL (3.4-5.0); Calcium 9.6 mg/dL (8.5-10.1); Potassium 3.9 mmol/L (3.5-5.1)
[2020-11-08 07:52] LABS: INR 1.67 (0.9-1.15)
[2020-11-08 07:53] LABS: BUN/Creatinine Ratio 53.6; Bilirubin, Total 0.6 mg/dL (0.2-1.0); Total Protein 7.9 g/dL (6.4-8.2)
[2020-11-08 08:00] VITALS: BP 131/91
[2020-11-08] MEDS: DexAMETHasone SOD PHOS 10MG/1ML VIAL INJ IV SCH (08:46)
[2020-11-08] MEDS: PANTOPRAZOLE 40 MG TAB PO SCH (08:46)
[2020-11-08 16:00] VITALS: BP 127/79
[2020-11-08] MEDS ORDERED: WARFARIN SODIUM 5 MG TAB PO ONE (17:00)
[2020-11-09 00:25] VITALS: BP 131/65
[2020-11-09 06:13] LABS: INR 1.92 (0.9-1.15)
[2020-11-09 08:00] VITALS: BP 132/81
[2020-11-09] MEDS: PANTOPRAZOLE 40 MG TAB PO SCH (08:59)
[2020-11-09] MEDS: DexAMETHasone SOD PHOS 10MG/1ML VIAL INJ IV SCH (08:59)
[2020-11-09] MEDS: ALPRAZolam 0.25 MG TAB PO PRN (14:35)
[2020-11-09 16:00] VITALS: BP 125/93
[2020-11-09 16:53] LABS: Basophils # (auto) 0.1 10 ^3/uL (0-0.2); Basophils % (auto) 0.7 % (0.0-2.0); Eosinophils # (auto) 0.5 10 ^3/uL (0-0.8); Eosinophils % (auto) 3.1 % (0.0-7.0); Hemoglobin 15.1 g/dL (12.2-16.2); Lymphocytes # (auto) 1.4 10 ^3/uL (0.4-5.4); Lymphocytes % (auto) 8.3 % (10.0-50.0); Mean Corpuscular Hemoglobin 31.4 pg (28.0-32.0); Mean Corpuscular Hgb Conc. 32.8 g/dL (32.0-36.0); Mean Corpuscular Volume 95.7 fL (80.0-100.0); Monocytes # (auto) 1.1 10 ^3/uL (0-1.3); Monocytes % (auto) 6.2 % (0.0-12.0); Neutrophils # (auto) 14.2 10 ^3/uL (1.6-8.6); Neutrophils % (auto) 81.7 % (37.0-80.0); Platelet Count (auto) 371 10^3/uL (140-450); Red Blood Cells 4.81 10^6/uL (4.0-5.20); Red Cell Distribution Width 14.8 % (11.8-14.3); White Blood Cell 17.4 10^3/uL (4.4-10.8)
[2020-11-09] MEDS ORDERED: WARFARIN SODIUM 5 MG TAB PO ONE (17:00)
[2020-11-09 23:50] VITALS: BP 112/67
[2020-11-10 08:00] VITALS: BP 123/87
[2020-11-10 08:31] LABS: INR 1.84 (0.9-1.15)
[2020-11-10] MEDS: PANTOPRAZOLE 40 MG TAB PO SCH (09:30)
[2020-11-10] MEDS: ALPRAZolam 0.25 MG TAB PO PRN (09:30)
[2020-11-10] MEDS: DexAMETHasone SOD PHOS 10MG/1ML VIAL INJ IV SCH (09:36)
[2020-11-10 16:00] VITALS: BP 115/67
[2020-11-10 17:16] LABS: INR 1.62 (0.9-1.15); Partial Thromboplastin Time 27.6 sec (23.0-31.2)
[2020-11-10 18:10] LABS: Basophils # (auto) 0 10 ^3/uL (0-0.2); Basophils % (auto) 0.1 % (0.0-2.0); Eosinophils # (auto) 0 10 ^3/uL (0-0.8); Eosinophils % (auto) 0.1 % (0.0-7.0); Hematocrit 45.2 % (36.0-46.0); Hemoglobin 15.2 g/dL (12.2-16.2); Lymphocytes # (auto) 0.6 10 ^3/uL (0.4-5.4); Lymphocytes % (auto) 3.3 % (10.0-50.0); Mean Corpuscular Hemoglobin 31.4 pg (28.0-32.0); Mean Corpuscular Hgb Conc. 33.7 g/dL (32.0-36.0); Monocytes # (auto) 0.5 10 ^3/uL (0-1.3); Neutrophils % (auto) 93.5 % (37.0-80.0); Platelet Count (auto) 389 10^3/uL (140-450); Red Blood Cells 4.86 10^6/uL (4.0-5.20); Red Cell Distribution Width 14.4 % (11.8-14.3); White Blood Cell 18.1 10^3/uL (4.4-10.8)
[2020-11-10] MEDS: HEPARIN DRIP/D5W 100UNITS/ML 250 ML IV SCH (18:22)
[2020-11-10 22:58] LABS: Basophils # (auto) 0 10 ^3/uL (0-0.2); Basophils % (auto) 0.1 % (0.0-2.0); Eosinophils # (auto) 0.1 10 ^3/uL (0-0.8); Eosinophils % (auto) 0.3 % (0.0-7.0); Hematocrit 46.6 % (36.0-46.0); Hemoglobin 15.8 g/dL (12.2-16.2); Lymphocytes # (auto) 1.2 10 ^3/uL (0.4-5.4); Lymphocytes % (auto) 5.8 % (10.0-50.0); Mean Corpuscular Hemoglobin 31.7 pg (28.0-32.0); Mean Corpuscular Hgb Conc. 33.9 g/dL (32.0-36.0); Mean Corpuscular Volume 93.5 fL (80.0-100.0); Monocytes # (auto) 1.4 10 ^3/uL (0-1.3); Monocytes % (auto) 7.1 % (0.0-12.0); Neutrophils # (auto) 17.2 10 ^3/uL (1.6-8.6); Neutrophils % (auto) 86.7 % (37.0-80.0); Platelet Count (auto) 403 10^3/uL (140-450); Red Blood Cells 4.99 10^6/uL (4.0-5.20); Red Cell Distribution Width 14.5 % (11.8-14.3); White Blood Cell 19.8 10^3/uL (4.4-10.8)
[2020-11-10 23:30] VITALS: BP 116/87
[2020-11-11] VITALS: BP 116/87
[2020-11-11 01:11] LABS: INR 1.61 (0.9-1.15)
[2020-11-11 01:14] LABS: Partial Thromboplastin Time 72.9 sec (23.0-31.2)
[2020-11-11] MEDS: LORazepam 2MG/ML-1ML VIAL IV PRN ×2 (04:20→12:40)
[2020-11-11 06:54] LABS: Basophils # (auto) 0 10 ^3/uL (0-0.2); Basophils % (auto) 0.2 % (0.0-2.0); Eosinophils # (auto) 0.5 10 ^3/uL (0-0.8); Eosinophils % (auto) 2.4 % (0.0-7.0); Hematocrit 45.3 % (36.0-46.0); Hemoglobin 15.3 g/dL (12.2-16.2); Lymphocytes # (auto) 1.6 10 ^3/uL (0.4-5.4); Lymphocytes % (auto) 8.4 % (10.0-50.0); Mean Corpuscular Hemoglobin 31.5 pg (28.0-32.0); Mean Corpuscular Hgb Conc. 33.8 g/dL (32.0-36.0); Mean Corpuscular Volume 93.4 fL (80.0-100.0); Monocytes # (auto) 1.5 10 ^3/uL (0-1.3); Monocytes % (auto) 7.5 % (0.0-12.0); Neutrophils % (auto) 81.5 % (37.0-80.0); Nucleated Red Blood Cells % 0.1 %; Platelet Count (auto) 387 10^3/uL (140-450); Red Blood Cells 4.85 10^6/uL (4.0-5.20); Red Cell Distribution Width 15.1 % (11.8-14.3); White Blood Cell 19.6 10^3/uL (4.4-10.8)
[2020-11-11 07:18] LABS: INR 1.5 (0.9-1.15)
[2020-11-11 07:45] LABS: Partial Thromboplastin Time 91.9 sec (23.0-31.2)
[2020-11-11 08:00] VITALS: BP 129/96
[2020-11-11] MEDS: HEPARIN DRIP/D5W 100UNITS/ML 250 ML IV SCH ×4 (08:58→23:22)
[2020-11-11] MEDS: DexAMETHasone SOD PHOS 10MG/1ML VIAL INJ IV SCH (10:24)
[2020-11-11] MEDS: PANTOPRAZOLE 40 MG TAB PO SCH (10:24)
[2020-11-11 11:45] LABS: Basophils # (auto) 0.1 10 ^3/uL (0-0.2); Basophils % (auto) 0.6 % (0.0-2.0); Eosinophils # (auto) 0.6 10 ^3/uL (0-0.8); Eosinophils % (auto) 2.8 % (0.0-7.0); Hematocrit 47.2 % (36.0-46.0); Hemoglobin 15.8 g/dL (12.2-16.2); Lymphocytes % (auto) 9.4 % (10.0-50.0); Mean Corpuscular Hemoglobin 31.4 pg (28.0-32.0); Mean Corpuscular Hgb Conc. 33.6 g/dL (32.0-36.0); Mean Corpuscular Volume 93.7 fL (80.0-100.0); Monocytes # (auto) 1.6 10 ^3/uL (0-1.3); Monocytes % (auto) 7.3 % (0.0-12.0); Neutrophils % (auto) 79.9 % (37.0-80.0); Nucleated Red Blood Cells % 0.1 %; Platelet Count (auto) 427 10^3/uL (140-450); Red Blood Cells 5.04 10^6/uL (4.0-5.20); Red Cell Distribution Width 14.8 % (11.8-14.3); White Blood Cell 21.3 10^3/uL (4.4-10.8)
[2020-11-11 13:52] LABS: INR 1.46 (0.9-1.15); Partial Thromboplastin Time 42.8 sec (23.0-31.2)
[2020-11-11] MEDS ORDERED: HEPARIN DRIP/D5W 100UNITS/ML 250 ML IV SCH (15:45)
[2020-11-11 15:55] LABS: INR 1.34 (0.9-1.15); Partial Thromboplastin Time 58.4 sec (23.0-31.2)
[2020-11-11 15:58] VITALS: BP 122/88
[2020-11-11 22:39] LABS: Basophils # (auto) 0 10 ^3/uL (0-0.2); Basophils % (auto) 0.2 % (0.0-2.0); Eosinophils # (auto) 0 10 ^3/uL (0-0.8); Eosinophils % (auto) 0.1 % (0.0-7.0); Hemoglobin 15.6 g/dL (12.2-16.2); Lymphocytes # (auto) 1.1 10 ^3/uL (0.4-5.4); Lymphocytes % (auto) 5.7 % (10.0-50.0); Mean Corpuscular Hemoglobin 31.6 pg (28.0-32.0); Mean Corpuscular Hgb Conc. 33.9 g/dL (32.0-36.0); Mean Corpuscular Volume 93.4 fL (80.0-100.0); Monocytes # (auto) 0.9 10 ^3/uL (0-1.3); Monocytes % (auto) 4.7 % (0.0-12.0); Neutrophils # (auto) 17.5 10 ^3/uL (1.6-8.6); Neutrophils % (auto) 89.3 % (37.0-80.0); Platelet Count (auto) 374 10^3/uL (140-450); Red Blood Cells 4.92 10^6/uL (4.0-5.20); Red Cell Distribution Width 14.7 % (11.8-14.3); White Blood Cell 19.6 10^3/uL (4.4-10.8)
[2020-11-11 23:03] LABS: INR 1.29 (0.9-1.15); Partial Thromboplastin Time 41.9 sec (23.0-31.2)
[2020-11-12] VITALS (16 sets, daily range): BP systolic 85–242; BP diastolic 30–127
[2020-11-12] MEDS: LORazepam 2MG/ML-1ML VIAL IV PRN ×2 (03:55→10:35)
[2020-11-12 05:58] LABS: Basophils # (auto) 0 10 ^3/uL (0-0.2); Basophils % (auto) 0.2 % (0.0-2.0); Eosinophils # (auto) 0.2 10 ^3/uL (0-0.8); Eosinophils % (auto) 0.7 % (0.0-7.0); Hemoglobin 15.5 g/dL (12.2-16.2); Lymphocytes # (auto) 1.6 10 ^3/uL (0.4-5.4); Lymphocytes % (auto) 7.2 % (10.0-50.0); Mean Corpuscular Hemoglobin 31.5 pg (28.0-32.0); Mean Corpuscular Hgb Conc. 33.6 g/dL (32.0-36.0); Mean Corpuscular Volume 93.7 fL (80.0-100.0); Monocytes # (auto) 1.4 10 ^3/uL (0-1.3); Monocytes % (auto) 6.5 % (0.0-12.0); Neutrophils # (auto) 18.5 10 ^3/uL (1.6-8.6); Neutrophils % (auto) 85.4 % (37.0-80.0); Platelet Count (auto) 380 10^3/uL (140-450); Red Blood Cells 4.91 10^6/uL (4.0-5.20); Red Cell Distribution Width 14.6 % (11.8-14.3); White Blood Cell 21.7 10^3/uL (4.4-10.8)
[2020-11-12 06:24] LABS: INR 1.29 (0.9-1.15)
[2020-11-12 06:27] LABS: Partial Thromboplastin Time 76.6 sec (23.0-31.2)
[2020-11-12] MEDS: HEPARIN DRIP/D5W 100UNITS/ML 250 ML IV SCH (06:28)
[2020-11-12] MEDS: DexAMETHasone SOD PHOS 10MG/1ML VIAL INJ IV SCH (10:00)
[2020-11-12] MEDS: PANTOPRAZOLE 40 MG TAB PO SCH (10:00)
[2020-11-12] MEDS ORDERED: ETOMIDATE (2MG/ML) 20ML VIAL IV ONE ×2 (11:00)
[2020-11-12] MEDS ORDERED: ROCURONIUM 10MG/ML 10ML VIAL IV ONE ×4 (11:00→13:30)
[2020-11-12] MEDS ORDERED: PROPOFOL 100 ML IV ONE (11:03)
[2020-11-12] MEDS ORDERED: MIDAZOLAM DRIP 50 mg/50mL 50 ML IV SCH (11:15)
[2020-11-12] MEDS ORDERED: PROPOFOL 100 ML IV SCH (11:15)
[2020-11-12] MEDS ORDERED: fentaNYL Drip 2500mCg/250mlNS 250 ML IV SCH (11:15)
[2020-11-12] MEDS ORDERED: ADENOSINE 6 MG/2 ML INJ IV ONE ×4 (13:00→14:00)
[2020-11-12] MEDS ORDERED: ATRACURIUM BESYLATE 1,000 MG in D5W 5% 150 ML IV SCH (13:45)
[2020-11-12] MEDS ORDERED: NOREPINEPHRINE 8 MG/250ML KIT 250 ML IV ONE (14:22)
[2020-11-12] MEDS ORDERED: PHENYLEPHRINE IV 250 ML IV ONE (14:27)
[2020-11-12] MEDS ORDERED: METOPROLOL TARTRATE 1MG/1ML-5ML VIAL IV PRN (14:30)
[2020-11-12] MEDS ORDERED: PHENYLEPHRINE IV 250 ML IV SCH (14:30)
[2020-11-12 15:11] LABS: BUN/Creatinine Ratio 26.4; Calcium 9.5 mg/dL (8.5-10.1); Potassium 4.6 mmol/L (3.5-5.1)
[2020-11-12 15:36] LABS: INR 1.15 (0.9-1.15); Partial Thromboplastin Time 33.2 sec (23.0-31.2)
[2020-11-12] MEDS ORDERED: SODIUM BICARBONATE 8.4 % INJ 50ML VIAL IV ONE ×3 (16:12→17:00)
[2020-11-12] MEDS ORDERED: EPINEPHrine HCL 1 MG/10 ML SYRG ONE (17:22)
[2020-11-12 17:41] LABS: Hemoglobin 14.8 g/dL (12.2-16.2); Platelet Count (auto) 473 10^3/uL (140-450)
[2020-11-12 17:43] LABS: Hematocrit 47.3 % (36.0-46.0); Mean Corpuscular Hemoglobin 31.2 pg (28.0-32.0); Mean Corpuscular Hgb Conc. 31.3 g/dL (32.0-36.0); Mean Corpuscular Volume 99.5 fL (80.0-100.0); Red Blood Cells 4.75 10^6/uL (4.0-5.20); Red Cell Distribution Width 15.3 % (11.8-14.3)
[2020-11-12] MEDS ORDERED: SODIUM BICARBONATE 50ML VIAL 150 ML in D5W 5% 1,000 ML IV SCH (17:45)
[2020-11-12 17:49] LABS: White Blood Cell 38.8 10^3/uL (4.4-10.8)
[2020-11-12 17:52] LABS: Basophils % (manual) 0 (0.0-2.0); Blast Cells 0; Eosinophils % (manual) 0 (0-7); Metamyelocytes % 0; Myelocytes % 0; Promyelocytes % 0; Reactive Lymphocytes 0
[2020-11-12] MEDS ORDERED: AMIODARONE HCL (50 MG/ ML) 3 ML VIAL IV ONE (18:30)
[2020-11-12] MEDS ORDERED: SODIUM BICARBONATE 8.4% INJ 50ML SYRINGE IV ONE ×2 (18:30)
[2020-11-12] MEDS ORDERED: ATROPINE SULF 1 MG/10ml SYR IV ONE (18:30)
[2020-11-12 19:08] LABS: Band Neutrophils % (manual) 2; Lymphocytes % (manual) 13 (10.0-50.0); Monocytes % (manual) 10 (0-12)
[2020-11-12] MEDS ORDERED: SODIUM CHLOR 0.9% PF (SALINE LOCK) 10ML VIAL/SYR IV SCH (22:00)
== END 2020-11-12 18:31 | DRG 137 ==
LOC: ER 20:40 → TELE 10-13 03:24 → TELE-WESTW 10-14 01:19 → ICU WEST 11-12 09:47
PROVIDERS: ADMIT Hospitalist; ATTEND Hospitalist
PROC: XW033E5 Introduction of Remdesivir Anti-infective into Peripheral Vein, Percutaneous Approach, New Technology Group 5 (ICD-10-PCS; principal; 2020-10-13)
PROC: XW033H5 Introduction of Tocilizumab into Peripheral Vein, Percutaneous Approach, New Technology Group 5 (ICD-10-PCS; 2020-10-15)
PROC: 5A0955A Assistance with Respiratory Ventilation, Greater than 96 Consecutive Hours, High Flow/Velocity Cannula (ICD-10-PCS; 2020-10-21)
PROC: 5A1935Z Respiratory Ventilation, Less than 24 Consecutive Hours (ICD-10-PCS; 2020-11-12)
PROC: 0BH17EZ Insertion of Endotracheal Airway into Trachea, Via Natural or Artificial Opening (ICD-10-PCS; 2020-11-12)
PROC: 5A09357 Assistance with Respiratory Ventilation, Less than 24 Consecutive Hours, Continuous Positive Airway Pressure (ICD-10-PCS; 2020-11-12)
PROC: 02HV33Z Insertion of Infusion Device into Superior Vena Cava, Percutaneous Approach (ICD-10-PCS; 2020-11-12)
PROC: 5A12012 Performance of Cardiac Output, Single, Manual (ICD-10-PCS; 2020-11-12)
DX: U07.1 COVID-19 (principal); J12.82 Pneumonia due to coronavirus disease 2019; J96.01 Acute respiratory failure with hypoxia; E87.3 Alkalosis; J01.00 Acute maxillary sinusitis, unspecified; E66.01 Morbid (severe) obesity due to excess calories; Z68.41 Body mass index [BMI] 40.0-44.9, adult; I10 Essential (primary) hypertension; E78.5 Hyperlipidemia, unspecified; D89.839 Cytokine release syndrome, grade unspecified; D73.5 Infarction of spleen; D68.59 Other primary thrombophilia; R04.0 Epistaxis; E88.09 Other disorders of plasma-protein metabolism, not elsewhere classified; Z79.01 Long term (current) use of anticoagulants; I74.09 Other arterial embolism and thrombosis of abdominal aorta; Z66 Do not resuscitate; Z98.51 Tubal ligation status; I46.9 Cardiac arrest, cause unspecified; Z68.39 Body mass index [BMI] 39.0-39.9, adult
CPT/HCPCS: 36415; 36569; 36600; 71045; 71260; 71275; 74177; 80048; 80053; 80076; 81001; 82728; 82805; 82962; 83605; 83735; 83880; 84484; 85007; 85025; 85027; 85379; 85610; 85730; 86141; 87040; 87081; 87426; 92950; 93005; 93970; 94002; 94640; 94660; 96365; 96375; G0378; J0153; J0696; J1100; J2250; J2543; J2704; J3490; J7060